=== PATIENT | female | born 1960 | race Caucasian/White ===

== ENCOUNTER 2022-10-06 09:09 | Outpatient (REF) | payer BC, SELFPAY ==
[2022-10-06 09:58] LABS: Hematocrit 44.7 % (37.0-47.0); Hemoglobin 14.4 g/dl (12.0-16.0); Mean Corpuscular HGB Conc 32.2 g/dl (31.0-35.0); Mean Corpuscular Hemoglobin 29.3 pg (27.0-33.0); Mean Platelet Volume 11.1 fL (9.4-12.3); Platelet Count 232 X10*3/uL (160-400); Red Blood Count 4.91 X10*6/uL (4.20-5.50); Red Cell Distribution Width 13.7 % (11.0-16.0); White Blood Count 6.3 X10*3/uL (4.8-10.8)
[2022-10-06 10:24] LABS: Anion Gap 16 (12-20); Blood Urea Nitrogen 18 mg/dL (9-16); Calcium 9.3 mg/dL (8.4-10.2); Carbon Dioxide 25 mmol/L (22-29); Chloride 106 mmol/L (96-108); Estimated Glomerular Filt Rate > 60; Glucose Random 90 mg/dL (60-115); Potassium 4.5 mmol/L (3.3-5.1); Sodium 142 mmol/L (135-145)
== END 2022-10-06 09:10 | disposition home or self-care (01) ==
LOC: HO.LAB 09:09
PROVIDERS: Visit Provider Internal Medicine
DX: Z87.19 Personal history of other diseases of the digestive system (principal)
CPT/HCPCS: 36415; 80048; 85027

== ENCOUNTER 2022-10-21 08:11 | Outpatient (REF) | payer BC, SELFPAY ==
--- NOTE | ~2022-10-21 | CT_ITS ---
EXAMINATION: CT ENTEROGRAPHY ABDOMEN AND PELVIS WITH CONTRAST CLINICAL INFORMATION: Personal history of other diseases of the digestive system COMPARISON: None TECHNIQUE: Study performed with oral VoLumen (1350 mL) and 480 mL of water to distend the abdomen. The patient was injected with 85 mL Omnipaque 350 intravenous contrast which was administered without adverse effect. Coronal and sagittal reformatted images were obtained at the technologist's workstation. This CT examination was performed using dose optimization techniques as appropriate, variously including the following: *Automated exposure control *Adjustment of mA and/or kV according to patient size (this includes techniques or standardized protocols for targeted exams where dose is matched to indication/reason for exam; i.e. extremities or head) *Use of iterative reconstruction technique DLP: 742 mGy-cm FINDINGS: GASTROINTESTINAL FINDINGS: Stomach: Well-distended. There is question of mild wall thickening of the antrum of the stomach. No mass seen. Is uncertain whether this is related to contraction/peristalsis or a true finding. Small intestine: Satisfactorily distended and normal in appearance. Large intestine: Moderate stool burden. Well-distended and otherwise normal in appearance. No perirectal changes demonstrated. The appendix is normal. Additional findings: No abnormal enhancement of the vasa recta or significant mesenteric or retroperitoneal lymphadenopathy is seen. No abdominal abscess or fistulous tract demonstrated. ABDOMINAL AND PELVIC CT FINDINGS: Liver, gallbladder, biliary tract: 1.7 cm slightly enhancing lesion in the right lobe of the liver axial image 13 series 3. Normal gallbladder. No biliary duct dilatation. Pancreas: Normal Spleen: Small calcifications in the spleen probably related to old granulomatous disease. Adrenal glands and kidneys: Normal. Ureters and bladder: Normal Lymphovascular structures: Normal. Bones: Degenerative changes. Lung bases: Normal CT/CT enterography IMPRESSION: Moderate stool burden. Mild circumferential wall thickening of the antrum of the stomach. It is uncertain whether this is related to peristalsis/contraction. 1.7 cm enhancing liver lesion. This could be further characterized with liver MRI if clinically indicated. Splenic calcifications suggestive of old granulomatous disease.
[2022-10-21] MEDS: iohexoL 350 MG/ML 100 ML INFUS..BTL IV (09:36)
[2022-10-21] MEDS: Sorbitol/Mannit/Xanth Imaging 500 ML LIQUID 1500 ML PO (09:38)
== END 2022-10-21 08:12 | disposition home or self-care (01) ==
LOC: HO.CT 08:11
PROVIDERS: Visit Provider Internal Medicine
DX: R10.9 Unspecified abdominal pain (principal); Z87.19 Personal history of other diseases of the digestive system
CPT/HCPCS: 74177; Q9967

== ENCOUNTER 2022-12-10 08:06 | Outpatient (REF) | payer BC, SELFPAY | END 2022-12-10 08:07 | disposition home or self-care (01) | LOC: HO.MRI 08:06 | PROVIDERS: Visit Provider Internal Medicine | DX: Z13.89 Encounter for screening for other disorder (principal) ==

== ENCOUNTER 2023-06-08 08:50 | Outpatient (AMB) | payer BC, SELFPAY ==
[2023-06-08 08:53] VITALS: BP 147/68; PULSE 72; BMI 33.7
--- NOTE | 2023-06-08 08:53 | MHC.OFFVIS ---
Intake Vital Signs 06/08/23 08:53 Height 5 ft 4 in Weight 196 lb 3.382 oz BMI 33.7 BP 147/68 H Blood Pressure Location Lt brachial Position Sitting Pulse 72 Intake Visit Reasons: Gerd-pt request Intake Note: Lillian presents in the office as a follow up for GERD. CC: She takes the pantoprazole - as long she she does not have any concerns at this time. 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 10/06/23: She is coming here to establish care. Patient states that she has intermittently had abdominal pain for almost a decade, mostly in the left upper quadrant. She had an upper endoscopy and colonoscopy for the same in 2013 which was normal. Was asked to repeat the colonoscopy in 2023 for colorectal cancer screening. The evening before admission, she has sudden onset of very sharp left upper quadrant pain that caused her to double over. She tried to manage it with [id number] antacids without any success. She then went to [facility] on 09/04 where she had a CT abdomen and pelvis with IV contrast that showed multiple fluid-filled loops of small bowel dilated up to 3.2 cm with a transition point in right upper quadrant. Moderate amount of stool in ascending colon. Distal colon is decompressed. Images not available for review. Patient was managed conservatively with bowel rest, NG tube for decompression. She improved considerably within the next 24 hours and was discharged on 09/06. Currently, no gastrointestinal complaints to include abdominal pain, nausea, vomiting, changes in appetite, unintentional weight loss, blood in stool. She feels back to her baseline. Does not report any NSAID use. No family history of inflammatory bowel disease. Quit smoking 30 years ago. Only surgical history was a in . She has lost almost 60 lb in the last 2 years by working on her diet and exercise Patient moved from [place] earlier this year. 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 She was also seeing him for GERD, and has been on omeprazole 40 mg once daily for many years now. 10/2022: CTE IMPRESSION: Moderate stool burden. Mild circumferential wall thickening of the antrum of the stomach. It is uncertain whether this is related to peristalsis/contraction. 1.7 cm enhancing liver lesion. This could be further characterized with liver MRI if clinically indicated. Splenic calcifications suggestive of old granulomatous disease. Correspondence: On 10/30/22 @ 13:08 Kaleigh Borden Wrote To Ellie Villareal Results reviewed with the pt. plan: = EGD, msg sent to schedulers = MRI abd Mariela, could you pls enter the MRI in [facility]? Liver protocol. Thanks! On 10/30/22 @ 13:08 Kaleigh Borden Wrote To Lisbet Barrett (2) Shahana Please schedue the pt for EGD within 8 weeks. Ind: gastric wall thickening. Thank you! On 12/02/22 @ 10:03 Lisbet Barrett Wrote To Fouzia Tracy pt is currently in [place] will contact office next week to schedule Lisbet Barrett removed from item. On 12/16/22 @ 14:00 Kaleigh Borden Wrote To Fouzia Tracy (2) Hi did the pt call back to schedule this? On 01/08/23 @ 17:30 Kaleigh Borden Wrote To [facility] Shahana would appreciate if we could follow up on this, thank you! On 01/14/23 @ 13:18 Erin June Wrote To Ellie Villareal pt scheduled, she also stated that when she went for her MRI she couldnt go through as she is claustrophobic and would need a an open MRI, pt can reached at home number to discuss. On 01/20/23 @ 08:55 Ellie Banuelos Wrote To Krystal Mclaughlin Needs an open MRI. I called and lvm for patient letting her know that we are going to have to refer her over to [facility]'s MRI. On 03/23/23 @ 15:00 Constance Hauser Wrote To Kaleigh Borden (2) Spoke to patient, she reports she cancelled the procedure today - unfortunately her ride is positive for covid. She reports she is feeling well and no issues. On 03/23/23 @ 15:57 Erin June Wrote To Kaleigh Borden pt has decided to hold off and would like to come back and see mane in consult. [facility] removed from item. 06/08/23: Patient comes in today for follow-up. Has no gastrointestinal complaints include abdominal pain, nausea, vomiting changes in appetite or unintentional weight loss. Has not had any recurrence of SBO since last year. CT results reviewed again. Patient did not receive a call from [facility] to schedule her imaging, we will follow-up on this. In terms of her upper endoscopy, again reminded that this is to follow up the abnormal CT enterography findings in the antrum. She is up-to-date on her colorectal cancer screening. Last colonoscopy was in 2017 and no polyps were seen at that time. She was given a 10 year recall. COUNT INCLUDES THE [facility] Surgical History History of esophagogastroduodenoscopy (EGD) Hx of colonoscopy Social History (Updated 06/08/23 @ 08:55 by LESLEY Ritter) Alcohol intake: current Alcohol intake frequency: a few times a week Patient Tobacco Use Status: Never used Tobacco Review of Systems Const All systems reviewed & are unremarkable except as noted in HPI and below Physical Exam Vital Signs: Last Vital Signs Pulse 72 06/08/23 08:53 BP 147/68 H 06/08/23 08:53 BMI result Body Mass Index 33.7 Gen appear: No acute distress, well nourished HEENT: no icterus, no cervical lymphadenopathy Chest: No overt resp distress CVS: S1/S2, regular Abd: soft, nontender, nondistended Psych: Stable affect, answering questions appropriately Neuro: A/Ox3 noted to move all extremities spontaneously Ext: no peripheral edema Assessment & Plan Assessment & Plan (1) Gastric wall thickening: Code(s): K31.89 - Other diseases of stomach and duodenum Plan: Incidentally noted. No s/sx including abd pain, N,V. Needs direct visualisation, as previously discussed. EGD to be booked in the next few weeks (2) Liver mass: Code(s): R16.0 - Hepatomegaly, not elsewhere classified Plan: 1.7 cm enhancing lesion in the R lobe of the liver. Pt again advised re follow up imaging with dedicated MRI. New orders for urgent MRI placed - pt will be referred for OPEN MRI as previously discussed. Also reviewed ativan pre-MRI which the pt declines at this time. Plan Follow up after EGD Orders: Orders MR abdomen wo/w con Today K76.89 - Other specified diseases of liver Coding Level of Care Code Est Pt Level 4 (47784) Diagnoses Gastric wall thickening K31.89 Liver mass R16.0
== END 2023-06-08 09:19 | disposition home or self-care (01) ==
PROVIDERS: Visit Provider Internal Medicine
DX: K31.89 Other diseases of stomach and duodenum (principal); R16.0 Hepatomegaly, not elsewhere classified
CPT/HCPCS: 99214

== ENCOUNTER → 2023-06-08 08:50 | Outpatient (BNVA) | payer BC, SELFPAY | PROVIDERS: Visit Provider Internal Medicine ==

== ENCOUNTER 2023-08-19 10:49 | Day surgery (SDC) | payer BC, SELFPAY ==
[2023-03-23 13:13] VITALS: BMI 31.8
--- NOTE | 2023-03-24 10:48 | HO.ANESPROP2 ---
HPI - Anesthesia Eval Consult details Narrative: 62yo F for Upper Endoscopy PMFSH Active Problems Active Problems: All Active Problems (Updated 10/30/22 @ 13:06 by Kaleigh Borden MD) Liver cyst (Acute) GERD (gastroesophageal reflux disease) (Acute) History of small bowel obstruction (Acute) Surgical History Surgical History History of esophagogastroduodenoscopy (EGD) Hx of colonoscopy Meds Allergies Allergy/AdvReac Type Severity Reaction Status Date / Time codeine Allergy Mild Unknown Verified 10/06/22 08:20 Home Medications Medication Instructions Recorded Confirmed Last Taken Type aspirin 81 mg tablet,delayed 81 mg PO DAILY 10/06/22 Unknown History release (Adult Aspirin Regimen) biotin 10,000 mcg chewable tablet mcg PO 10/06/22 Unknown History (Hair, Skin and Nails (biotin)) cholecalciferol (vitamin D3) 10 10 mcg PO DAILY 10/06/22 Unknown History mcg (400 unit) capsule mecobalamin (vitamin B12) 1,000 1,000 mcg PO DAILY 10/06/22 Unknown History mcg lozenges omega-3 fatty acids-fish oil 360 1 cap PO DAILY 10/06/22 Unknown History mg-1,200 mg capsule (Fish Oil) rosuvastatin 5 mg tablet 5 mg PO DAILY 10/06/22 Unknown History s-adenosylmethionine 400 mg tablet 400 mg PO DAILY 10/06/22 Unknown History (Loi-E) vitamin E (dl, acetate) 45 mg (100 45 mg PO DAILY 10/06/22 Unknown History unit) capsule Exam Exam Date and Time: March 24, 2023 1048 Height,Weight and Vital Signs: Height 5 ft 4 in Weight 83.915 kg Pertinent Lab Results Pertinent Lab Results: Laboratory Tests 10/06/22 10/06/22 09:23 09:23 WBC 6.3 Hgb 14.4 Hct 44.7 Plt Count 232 Sodium 142 Potassium 4.5 Chloride 106 Carbon Dioxide 25 BUN 18 H Creatinine 0.70 Assessment and Plan Assessment Anesthesia Assessment: Chart Reviewed
--- NOTE | 2023-08-18 12:13 | HO.ANESPROP2 ---
Documented by User: Nai Diaz NP 08/18/23 12:13 HPI - Anesthesia Eval Consult details Narrative: 62yo F for Upper Endoscopy PMFSH Active Problems Active Problems: All Active Problems (Updated 06/08/23 @ 09:57 by Kaleigh Borden MD) Liver mass (Acute) Gastric wall thickening (Acute) Liver cyst (Acute) GERD (gastroesophageal reflux disease) (Acute) History of small bowel obstruction (Acute) Surgical History Surgical History Hx of colonoscopy History of esophagogastroduodenoscopy (EGD) Social History Social History Alcohol intake: current Alcohol intake frequency: a few times a week Patient Tobacco Use Status: Never used Tobacco Use of substances other than those prescribed or required for medical reasons: No Are you DNR?: No Advance Directives: No Advance Directives Information Provided: Yes Meds Allergies Allergy/AdvReac Type Severity Reaction Status Date / Time codeine Allergy Mild Unknown Verified 06/08/23 08:55 Home Medications Medication Instructions Recorded Confirmed Last Taken Type aspirin 81 mg tablet,delayed 81 mg PO DAILY 10/06/22 Unknown History release (Adult Aspirin Regimen) biotin 10,000 mcg chewable tablet mcg PO 10/06/22 Unknown History (Hair, Skin and Nails (biotin)) cholecalciferol (vitamin D3) 10 10 mcg PO DAILY 10/06/22 Unknown History mcg (400 unit) capsule mecobalamin (vitamin B12) 1,000 1,000 mcg PO DAILY 10/06/22 Unknown History mcg lozenges omega-3 fatty acids-fish oil 360 1 cap PO DAILY 10/06/22 Unknown History mg-1,200 mg capsule (Fish Oil) rosuvastatin 5 mg tablet 5 mg PO DAILY 10/06/22 Unknown History s-adenosylmethionine 400 mg tablet 400 mg PO DAILY 10/06/22 Unknown History (JUANJOSE-e) vitamin E (dl, acetate) 45 mg (100 45 mg PO DAILY 10/06/22 Unknown History unit) capsule ascorbic acid (vitamin C) 250 mg 750 mg PO DAILY 06/08/23 Unknown History tablet Exam Exam Date and Time: August 18, 2023 1213 Height,Weight and Vital Signs: Height 5 ft 4 in Weight 83.915 kg Narrative Narrative: CT enterography 2021 IMPRESSION: Moderate stool burden. Mild circumferential wall thickening of the antrum of the stomach. It is uncertain whether this is related to peristalsis/contraction. 1.7 cm enhancing liver lesion. This could be further characterized with liver MRI if clinically indicated. Splenic calcifications suggestive of old granulomatous disease. Assessment and Plan Assessment Anesthesia Assessment: Chart Reviewed Documented by User: Art Rosales MD 08/19/23 12:40 PMF Family History Family history of problems with anesthesia: No Surgical History Surgical History Hx of colonoscopy History of esophagogastroduodenoscopy (EGD) History of Problems with Anesthesia: No Social History Social History Alcohol intake: current Alcohol intake frequency: a few times a week Patient Tobacco Use Status: Never used Tobacco Use of substances other than those prescribed or required for medical reasons: No Are you DNR?: No Advance Directives: No Advance Directives Information Provided: Yes Meds Allergies Allergy/AdvReac Type Severity Reaction Status Date / Time codeine Allergy Mild Unknown Verified 06/08/23 08:55 Home Medications Medication Instructions Recorded Confirmed Last Taken Type aspirin 81 mg tablet,delayed 81 mg PO DAILY 10/06/22 Unknown History release (Adult Aspirin Regimen) biotin 10,000 mcg chewable tablet mcg PO 10/06/22 Unknown History (Hair, Skin and Nails (biotin)) cholecalciferol (vitamin D3) 10 10 mcg PO DAILY 10/06/22 Unknown History mcg (400 unit) capsule mecobalamin (vitamin B12) 1,000 1,000 mcg PO DAILY 10/06/22 Unknown History mcg lozenges omega-3 fatty acids-fish oil 360 1 cap PO DAILY 10/06/22 Unknown History mg-1,200 mg capsule (Fish Oil) rosuvastatin 5 mg tablet 5 mg PO DAILY 10/06/22 Unknown History s-adenosylmethionine 400 mg tablet 400 mg PO DAILY 10/06/22 Unknown History (JUANJOSE-e) vitamin E (dl, acetate) 45 mg (100 45 mg PO DAILY 10/06/22 Unknown History unit) capsule ascorbic acid (vitamin C) 250 mg 750 mg PO DAILY 06/08/23 Unknown History tablet Exam Airway Mallampati Class: I TM Dist: >3cm Neck ROM: Full Assessment and Plan Assessment Anesthesia Assessment: Anesthesia Plan Discussed Final Anesthetic Review Family History of Problems with Anesthesia: No History of Problems with Anesthesia: No NPO: Yes ASA Class: II Final Preanesthetic Review: No Changes in Pt Med Stat, Meds/Allgs Chart Reviewed, Consent Obtained/Reviewed and Anes Risks/Benef Reviewed Patient Risk: Intermediate Procedure Risk: Low Anesthetic Plan Anesthetic Plan: MAC: Disposition: Standard PACU
[2023-08-19 11:12] VITALS: BP 177/77; PULSE 63; RESP 18; TEMP 36.8; O2SAT 97; BMI 32.6
--- NOTE | 2023-08-19 11:16 | MHC.SHP ---
Pre-Procedural Eval Section A Date of Service: 08/19/23 Section B Chief Complaint: Gastric wall thickening Details of Present Illness: PSH: History of esophagogastroduodenoscopy (EGD) Hx of colonoscopy Medical History: No relevant PMH Allergies: Allergies Allergy/AdvReac Type Severity Reaction Status Date / Time codeine Allergy Mild Unknown Verified 06/08/23 08:55 Review of Systems Review of Systems Comment: 10 point ROS negative Exam Exam Comment: Gen appear: No acute distress HEENT: no icterus Chest: No overt resp distress Abd: soft, nontender, nondistended Psych: Stable affect, answering questions appropriately Neuro: A/Ox3 noted to move all extremities spontaneously Ext: no peripheral edema Plan Diagnosis/Plan: Unchanged I have reviewed the history and physical and performed a pertinent physical examination on my patient. No changes have occurred unless specified. Time Spent With Patient Time: Total time managing care of this patient today ____ minutes.
[2023-08-19] MEDS: Lactated Ringers 1,000 ML 100 ML IVCONT (11:46)
--- NOTE | 2023-08-19 12:55 | P.OP_ITS ---
Operative Note Operative Note Date of Service: 08/19/23 Narrative: Procedure: Esophagogastroduodenoscopy Endoscopist: Kaleigh Borden MD Indication: Thickened gastric wall Anesthesia Provider: Dr Art Rosales Anesthesia Type: MAC ?? EGD Procedure:?? The procedure, indications, preparation and potential complications were reviewed with the patient, who indicated understanding and gave written informed consent to proceed. A physical exam was performed. The endoscope was introduced through the mouth, and advanced to the second part of duodenum. The mucosa was carefully examined on slow withdrawal of the endoscope. The patient tolerated the procedure well. There were no immediate complications.? ? EGD Findings:? * Esophagus:? Normal mucosa noted in the entire esophagus. The Z line was at 36 cm. * Stomach:? Erythema and redness in the antrum was noted along the greater curvature. Thickened folds were also noted in the body of the stomach along lesser curvature. Cold forceps mapping biopsies were obtained as per [facility] protocol. Numerous polyps were noted in the fundus and body of the stomach. A few larger ones were biopsied with cold forceps. * Duodenum:? Normal mucosa was noted in the whole of the examined duodenum. Cold forceps biopsies were taken from duodenal bulb and second portion of the duodenum to rule out celiac sprue. ? EGD Impressions:? * Normal esophagus * Antral gastritis (biopsy) * Gastric polyps (biopsy) * Thickened gastric folds (biopsy) * Normal duodenum (biopsy) ?? Recommendations:?? * Follow biopsy results. Our office will call or send a letter with results within 7-10 days. * If H pylori +, patient will be prescribed eradication therapy followed by test of cure. * Avoid NSAIDs. Above has been reviewed with the patient.
[2023-08-19 13:22] VITALS: BP 100/73; PULSE 70; RESP 15; TEMP 36.1; O2SAT 97
[2023-08-19 13:41] VITALS: BP 145/67; PULSE 59; RESP 18; TEMP 36.1; O2SAT 100
== END 2023-08-19 14:31 | disposition home or self-care (01) ==
PROVIDERS: PCP Student in an Organized Health Care Education/Training Program; Visit Provider Internal Medicine
PROC: 0DJ08ZZ Inspection of Upper Intestinal Tract, Via Natural or Artificial Opening Endoscopic (ICD-10-PCS; CPT 43235; principal; 2023-08-19 12:20)
DX: K31.7 Polyp of stomach and duodenum (principal); K29.70 Gastritis, unspecified, without bleeding; K31.89 Other diseases of stomach and duodenum; K21.9 Gastro-esophageal reflux disease without esophagitis; Z87.19 Personal history of other diseases of the digestive system
CPT/HCPCS: 43239; 88305; 88342

== ENCOUNTER → 2023-08-19 10:49 | Outpatient (BNV) | payer BC, SELFPAY | PROVIDERS: PCP Student in an Organized Health Care Education/Training Program; Visit Provider Internal Medicine | DX: K31.89 Other diseases of stomach and duodenum (principal); K29.70 Gastritis, unspecified, without bleeding; K31.7 Polyp of stomach and duodenum | CPT/HCPCS: 43239 ==

== ENCOUNTER 2023-08-26 12:33 | Outpatient (REF) | payer BC, SELFPAY ==
[2023-08-27 12:57] LABS: Transglutaminase IgA <1.0 U/mL
[2023-08-27 16:28] LABS: Immunoglobulin A 211 mg/dL (70-320)
== END 2023-08-26 12:34 | disposition home or self-care (01) ==
LOC: HO.LAB 12:33
PROVIDERS: PCP Student in an Organized Health Care Education/Training Program; Visit Provider Internal Medicine
DX: K29.80 Duodenitis without bleeding (principal)
CPT/HCPCS: 36415; 82784; 86364